=== PATIENT | female | born 1965 | race Caucasian/White ===

== ENCOUNTER 2020-12-31 12:18 | Emergency (ER) | payer OTHER ==
[~2020-12-31] VITALS: Ht 172.7 cm; Wt 79.4 kg
[2020-12-31] MEDS ORDERED: GLYBURIDE5 MG (12:33)
[2020-12-31] MEDS ORDERED: GLYXAMBI 25 MG1 EACH PO (12:33)
[2020-12-31] MEDS ORDERED: CRESTOR40 MG PO (12:34)
[2020-12-31] MEDS ORDERED: BUTALB-ACETAMI1 EACH PO (18:36)
== END 2020-12-31 18:41 | disposition home or self-care (01) ==
LOC: ER 12:18
DX: R51.9 Headache, unspecified (principal)